=== PATIENT | female | born 1960 | race Caucasian/White ===

== ENCOUNTER 2019-07-25 09:33 | Outpatient (CLI) | payer OTHER ==
--- NOTE | 2019-07-25 09:52 | RAD ---
XR Knee Rt 4 View STANDARD HISTORY: Swelling of the right knee and right knee pain FINDINGS: No fracture or dislocation is identified. There are mild-moderate degenerative changes.
== END 2019-07-25 09:34 | disposition home or self-care (01) ==
LOC: BICRAD 09:33
PROVIDERS: ATTEND Physician Assistant
DX: M25.461 Effusion, right knee (principal); M17.11 Unilateral primary osteoarthritis, right knee
CPT/HCPCS: 80053; 80061; 85025

== ENCOUNTER 2021-01-27 16:01 | Outpatient (CLI) | payer BC | END 2021-01-27 16:02 | disposition home or self-care (01) | LOC: CTENTCT 16:01 | PROVIDERS: ATTEND Specialist | DX: J32.8 Other chronic sinusitis (principal) | CPT/HCPCS: 70486 ==